=== PATIENT | male | born 1950 | race Caucasian/White ===

== ENCOUNTER 2020-04-29 10:48 | Emergency (ER) | payer OTHER ==
[~2020-04-29] VITALS: Ht 167.6 cm; Wt 88.5 kg
[2020-04-29] MEDS ORDERED: methylPREDNISolone SOD SUCC 125 MG/2 ML VL IM ONE (11:15)
[2020-04-29 11:33] LABS: Basophils # (auto) 0 10 ^3/uL (0-0.2); Eosinophils # (auto) 0 10 ^3/uL (0-0.8); Eosinophils % (auto) 0.1 % (0.0-7.0); Lymphocytes # (auto) 0.4 10 ^3/uL (0.4-5.4); Red Blood Cells 4.07 10^6/uL (4.5-5.90)
[2020-04-29 11:34] LABS: Basophils % (auto) 0.5 % (0.0-2.0); Hematocrit 41.5 % (41.0-53.0); Hemoglobin 13.7 g/dL (13.5-17.5); Mean Corpuscular Hemoglobin 33.7 pg (28.0-32.0); Mean Corpuscular Volume 102.1 fL (80.0-100.0); Monocytes % (auto) 13.2 % (0.0-12.0); Neutrophils # (auto) 6.1 10 ^3/uL (1.6-8.6); Neutrophils % (auto) 81.2 % (37.0-80.0); Platelet Count (auto) 194 10^3/uL (140-450); Red Cell Distribution Width 15.4 % (11.8-14.3); White Blood Cell 7.5 10^3/uL (4.4-10.8)
[2020-04-29 11:50] LABS: Alanine Aminotransferase 25 U/L (16-61); Anion Gap 14 (5-15); Aspartate Aminotransferase 17 U/L (15-37); BUN/Creatinine Ratio 25.4; Blood Urea Nitrogen 48 mg/dL (7-18); Carbon Dioxide 22 mmol/L (21-32); Chloride 98 mmol/L (98-107); GFR African American 45 mL/min; GFR Non-African American 38 mL/min; Glucose 119 mg/dL (74-106); Potassium 4.1 mmol/L (3.5-5.1); Sodium 134 mmol/L (136-145)
[2020-04-29 11:55] LABS: Alkaline Phosphatase 134 U/L (45-117); Bilirubin, Total 0.7 mg/dL (0.2-1.0); Total Protein 7.8 g/dL (6.4-8.2)
[2020-04-29 12:21] LABS: Calcium 5.7 mg/dL (8.5-10.1)
[2020-04-29] MEDS ORDERED: CALCIUM GLUC 4.65meq/50ml D5AE 50 ML IV ONE (13:45)
[2020-04-29 18:04] VITALS: BP 134/68
== END 2020-04-29 21:30 | disposition home or self-care (01) ==
LOC: ER 10:48
DX: T78.40XA Allergy, unspecified, initial encounter (principal); E83.51 Hypocalcemia; X58.XXXA Exposure to other specified factors, initial encounter
CPT/HCPCS: 36415; 71045; 80053; 82310; 82962; 84100; 84484; 85025; 93005; 96365; 96372; 99285; J0610; J2930